=== PATIENT | male | born 1940 | race Caucasian/White ===

== ENCOUNTER 2017-03-01 11:36 | Emergency (ER) | payer MEDICARE, OTHER ==
[2017-03-01] MEDS ORDERED: Sodium Chloride 0.9% 10 ML Syringe FLUSH PRN (11:59)
--- NOTE | 2017-03-01 12:29 | EDM.PDOC ---
ED HPI GENERAL MEDICAL PROBLEM - General Chief Complaint: Respiratory Problem Stated Complaint: FEVER/CHILLS Time Seen by Provider: 03/01/17 11:45 Source of Information: Reports: Patient History Limitations: Reports: No Limitations - History of Present Illness INITIAL COMMENTS - FREE TEXT/NARRATIVE: The patient is a 76-year-old male with a chief complaint of chills. The patient has a history of chronic renal failure and is on dialysis. Yesterday he felt fine. This morning when he woke up he had chills. Today while he was waiting for dialysis he had the chills again. His temperature at that time was 99. He is just generally feeling poorly with fatigue and malaise and nausea. No vomiting. He also has a dry cough. He's had that for some time, not able to say exactly how long. States that there hasn't been much of a change in that. No chest pain. He denies shortness of breath but his feels like he's been breathing faster and has been having a harder time breathing. He denies abdominal pain. No dysuria. He does still make some urine. No skin complaint. No lower extremity pain or swelling. He was also noted to be hypoxic at dialysis so was sent to the emergency department for further evaluation. He recently moved Dr. Raman Albert after spending the winter in [facility]] where his care has been. He states that he was given an antibiotic sometime over the winter which caused renal failure resulting in need for dialysis since December. States that the first catheter that was placed in his right upper chest area had a wound or possible infection that hasn't fully healed. A second catheter was placed and the first catheter was removed but the wound from the first catheter has continued to be raw and nonhealed. No recent change in this wound. - Related Data Allergies Allergy/AdvReac Type Severity Reaction Status Date / Time antibiotic Allergy Renal Uncoded 03/01/17 12:17 Failure Home Meds: Home Meds Albuterol [Ventolin HFA] 2 puff INH Q6H PRN 03/01/17 [History] Allopurinol [Zyloprim] 100 mg PO BID 03/01/17 [History] Ascorbic Acid [Vitamin C] 1 tab PO BEDTIME 03/01/17 [History] Aspirin 325 mg PO DAILY 03/01/17 [History] Glimepiride [Amaryl] 2 mg PO WITHBREAKFAST 03/01/17 [History] Metoprolol Tartrate [Lopressor] 25 mg PO DAILY 03/01/17 [History] Omeprazole 20 mg PO DAILY 03/01/17 [History] Polyethylene Glycol [Polyox [id number]] 1 pack PO DAILY PRN 03/01/17 [History] Simvastatin [Zocor] 40 mg PO BEDTIME 03/01/17 [History] Past Medical History Cardiovascular History: Reports: Afib, Bypass, Heart Failure, Hypertension Respiratory History: Reports: Bronchitis, Recurrent Gastrointestinal History: Reports: Other (See Below) Other Gastrointestinal History: gout Genitourinary History: Reports: Dialysis, Renal Disease Endocrine/Metabolic History: Reports: Diabetes, Type II - Past Surgical History Cardiovascular Surgical History: Reports: Other (See Below) Other Cardiovascular Surgeries/Procedures: Triple bypass Musculoskeletal Surgical History: Reports: Other (See Below) Other Musculoskeletal Surgeries/Procedures:: back fracture Social & Family History - Tobacco Use Smoking Status *Q: Former Smoker Used Tobacco, but Quit: Yes Month Tobacco Last Used: 1980 - Caffeine Use Caffeine Use: Reports: None - Recreational Drug Use Recreational Drug Use: No ED ROS GENERAL - Review of Systems Review Of Systems: See Below Constitutional: Reports: Chills, Malaise, Weakness, Fatigue HEENT: Reports: No Symptoms Respiratory: Denies: Pleuritic Chest Pain, Cough Cardiovascular: Denies: Chest Pain Endocrine: Reports: Fatigue GI/Abdominal: Reports: Nausea. Denies: Abdominal Pain : Denies: Dysuria Musculoskeletal: Reports: No Symptoms. Denies: Leg Pain Skin: Reports: Wound. Denies: Rash Neurological: Reports: No Symptoms Psychiatric: Reports: No Symptoms Hematologic/Lymphatic: Reports: No Symptoms Immunologic: Reports: No Symptoms ED EXAM, GENERAL - Physical Exam Exam: See Below Exam Limited By: No Limitations General Appearance: Alert, Mild Distress, Other (Mildly tachypneic, ill appearing) Eye Exam: Bilateral Eye: Normal Inspection Ears: Normal External Exam Nose: Normal Inspection, Normal Mucosa, No Blood Throat/Mouth: Normal Inspection, Normal Voice, No Airway Compromise Head: Atraumatic, Normocephalic Neck: Normal Inspection, Supple, Non-Tender, Full Range of Motion Respiratory/Chest: Other (tachypnea, few crackles at the bases, no wheeze) Cardiovascular: Normal Peripheral Pulses, Regular Rate, Rhythm, No Edema, No Murmur GI/Abdominal: Soft, Non-Tender, No Distention. No: Rebound Back Exam: Normal Inspection Extremities: Normal Inspection. No: Pedal Edema, Leg Pain, Redness Neurological: Alert, Oriented, Normal Cognition, No Motor/Sensory Deficits Psychiatric: Normal Affect, Normal Mood Skin Exam: Warm, Dry, Intact, Normal Color, No Rash Course - Vital Signs Last Recorded V/S: Last Vital Signs Temp 37.1 C 03/01/17 11:43 Pulse 87 03/01/17 11:43 Resp 30 H 03/01/17 11:43 BP 188/73 H 03/01/17 11:43 Pulse Ox 86 L 03/01/17 11:43 - Orders/Labs/Meds Orders: Active Orders 24 hr Category Date Time Status EKG 12 Lead [EKG Documentation Completion] [RC] STAT Care 03/01/17 12:23 Active Peripheral IV Care [RC] . DIRECTED Care 03/01/17 12:00 Active Chest 1V Frontal [CR] Stat Exams 03/01/17 11:59 Taken CULTURE BLOOD [BC] Stat Lab 03/01/17 12:25 Received CULTURE BLOOD [BC] Stat Lab 03/01/17 12:40 Received CULTURE BLOOD [BC] Stat Lab 03/01/17 13:03 Received Sodium Chloride 0.9% [Saline Flush] Med 03/01/17 11:59 Active 10 ml FLUSH ASDIRECTED PRN Blood Culture x2 Reflex Set [OM.PC] Stat Oth 03/01/17 11:59 Ordered Blood Culture x2 Reflex Set [OM.PC] Stat Oth 03/01/17 12:23 Ordered Peripheral IV Insertion Adult [OM.PC] Routine Oth 03/01/17 11:59 Ordered Medication Orders Sodium Chloride (Saline Flush) 10 ml FLUSH ASDIRECTED PRN PRN Reason: Keep Vein Open Last Admin: 03/01/17 13:18 Dose: 10 ml Labs: Laboratory Tests 03/01/17 03/01/17 03/01/17 Range/Units 12:25 12:25 12:25 WBC 17.67 H (4.23-9.07) K/mm3 RBC 3.65 L (4.63-6.08) M/mm3 Hgb 10.9 L (13.7-17.5) gm/L Hct 34.9 L (40.1-51.0) % MCV 95.6 H (79.0-92.2) fl MCH 29.9 (25.7-32.2) pg MCHC 31.2 L (32.2-35.5) g/dl RDW Std Deviation 55.2 H (35.1-43.9) fL Plt Count 151 L (163-337) K/mm3 MPV 11.4 (9.4-12.3) fl Neut % (Auto) 91.0 H (34.0-67.9) % Lymph % (Auto) 5.0 L (21.8-53.1) % Meade % (Auto) 3.2 L (5.3-12.2) % Eos % (Auto) 0.2 L (0.8-7.0) Baso % (Auto) 0.1 (0.1-1.2) % Neut # (Auto) 16.08 H (1.78-5.38) K/mm3 Lymph # (Auto) 0.89 L (1.32-3.57) K/mm3 Meade # (Auto) 0.56 (0.30-0.82) K/mm3 Eos # (Auto) 0.03 L (0.04-0.54) K/mm3 Baso # (Auto) 0.02 (0.01-0.08) K/mm3 Manual Slide Review Abnormal smear Sodium 135 L (136-145) mEq/L Potassium 4.6 (3.5-5.1) mEq/L Chloride 99 (98-107) mEq/L Carbon Dioxide 27 (21-32) mEq/L Anion Gap 13.6 (5-15) BUN 61 H (7-18) mg/dL Creatinine 6.2 H (0.7-1.3) mg/dL Est Cr Clr Drug Dosing 7.71 mL/min Estimated GFR (MDRD) 9 (>60) mL/min BUN/Creatinine Ratio 9.8 L (14-18) Glucose 177 H (83-115) mg/dL Lactic Acid 2.5 H (0.4-2.0) mmol/L Calcium 8.8 (8.5-10.1) mg/dL Total Bilirubin 0.4 (0.2-1.0) mg/dL AST 10 L (15-37) U/L ALT 14 L (16-63) U/L Alkaline Phosphatase 61 (46-116) U/L Troponin I (0.00-0.056) ng/mL Total Protein 7.4 (6.4-8.2) g/dl Albumin 3.1 L (3.4-5.0) g/dl Globulin 4.3 gm/dL Albumin/Globulin Ratio 0.7 L (1-2) Urine Color (Yellow) Urine Appearance (Clear) Urine pH (5.0-8.0) Ur Specific Alden (1.005-1.030) Urine Protein (Negative) Urine Glucose (UA) (Negative) Urine Ketones (Negative) Urine Occult Blood (Negative) Urine Nitrite (Negative) Urine Bilirubin (Negative) Urine Urobilinogen (0.2-1.0) Ur Leukocyte Esterase (Negative) Urine RBC (0-5) /hpf Urine WBC (0-5) /hpf Ur Epithelial Cells (0-5) /hpf Urine Bacteria (FEW) /hpf Urine Mucus (FEW) /hpf 03/01/17 03/01/17 Range/Units 12:25 13:15 WBC (4.23-9.07) K/mm3 RBC (4.63-6.08) M/mm3 Hgb (13.7-17.5) gm/L Hct (40.1-51.0) % MCV (79.0-92.2) fl MCH (25.7-32.2) pg MCHC (32.2-35.5) g/dl RDW Std Deviation (35.1-43.9) fL Plt Count (163-337) K/mm3 MPV (9.4-12.3) fl Neut % (Auto) (34.0-67.9) % Lymph % (Auto) (21.8-53.1) % Meade % (Auto) (5.3-12.2) % Eos % (Auto) (0.8-7.0) Baso % (Auto) (0.1-1.2) % Neut # (Auto) (1.78-5.38) K/mm3 Lymph # (Auto) (1.32-3.57) K/mm3 Meade # (Auto) (0.30-0.82) K/mm3 Eos # (Auto) (0.04-0.54) K/mm3 Baso # (Auto) (0.01-0.08) K/mm3 Manual Slide Review Sodium (136-145) mEq/L Potassium (3.5-5.1) mEq/L Chloride (98-107) mEq/L Carbon Dioxide (21-32) mEq/L Anion Gap (5-15) BUN (7-18) mg/dL Creatinine (0.7-1.3) mg/dL Est Cr Clr Drug Dosing mL/min Estimated GFR (MDRD) (>60) mL/min BUN/Creatinine Ratio (14-18) Glucose (83-115) mg/dL Lactic Acid (0.4-2.0) mmol/L Calcium (8.5-10.1) mg/dL Total Bilirubin (0.2-1.0) mg/dL AST (15-37) U/L ALT (16-63) U/L Alkaline Phosphatase (46-116) U/L Troponin I 0.099 H* (0.00-0.056) ng/mL Total Protein (6.4-8.2) g/dl Albumin (3.4-5.0) g/dl Globulin gm/dL Albumin/Globulin Ratio (1-2) Urine Color Yellow (Yellow) Urine Appearance Slt cloudy H (Clear) Urine pH 5.5 (5.0-8.0) Ur Specific Alden 1.020 (1.005-1.030) Urine Protein 3+ H (Negative) Urine Glucose (UA) Negative (Negative) Urine Ketones Negative (Negative) Urine Occult Blood Negative (Negative) Urine Nitrite Negative (Negative) Urine Bilirubin Negative (Negative) Urine Urobilinogen 0.2 (0.2-1.0) Ur Leukocyte Esterase Negative (Negative) Urine RBC Not seen (0-5) /hpf Urine WBC 0-5 (0-5) /hpf Ur Epithelial Cells 0-5 (0-5) /hpf Urine Bacteria Few (FEW) /hpf Urine Mucus Not seen (FEW) /hpf Meds: Medications Generic Name Dose Route Start Last Admin Trade Name Freq PRN Reason Stop Dose Admin Sodium Chloride 10 ml 03/01/17 11:59 03/01/17 13:18 Saline Flush FLUSH 10 ml ASDIRECTED PRN Administration Keep Vein Open Discontinued Medications Generic Name Dose Route Start Last Admin Trade Name Freq PRN Reason Stop Dose Admin Heparin Sodium (Porcine) 500 units 03/01/17 12:46 03/01/17 13:20 Heparin Lock Flush 100 Units/Ml FLUSH 03/01/17 12:47 Not Given ASDIRECTED ONE Piperacillin Sod/Tazobactam 100 mls @ 200 mls/hr 03/01/17 12:33 03/01/17 13: 18 Sod 4.5 gm/ Sodium Chloride IV 03/01/17 13:02 200 mls/hr ONETIME ONE Administration Vancomycin HCl 1.5 gm/ Sodium 250 mls @ 250 mls/hr 03/01/17 12:33 Chloride IV 03/01/17 13:32 ONETIME ONE Vancomycin HCl 1 gm/ 500 mls @ 500 mls/hr 03/01/17 13:18 03/01/17 13:50 Vancomycin HCl 500 mg/ Sodium IV 03/01/17 13:32 500 mls/hr Chloride ONETIME ONE Administration - Re-Assessments/Exams Free Text/Narrative Re-Assessment/Exam: 03/01/17 13:23 Chest x-ray shows mild haziness at the bilateral bases, difficult to exclude early pneumonia. Probable left lower lobe effusion. Cardiomegaly. No prior available for comparison. Labs show elevated white blood cell count with left shift. Patient has mild troponin leak with troponin is 0.09. He has no chest pain whatsoever. EKG shows normal sinus rhythm, nonspecific T-wave flattening/ abnormality, no ST elevation NE. Suspect the patient's sepsis is likely due to early pneumonia given his new cough and hypoxia as well. This would be a healthcare associated pneumonia given that he is a dialysis patient. We don't have the ability to admit dialysis patients here so the patient will need to be transferred. His preference is to go to [facility] as his prior care in [place] has been there. We've requested records from [facility]]. [facility] call called at 1:20 PM. 03/01/17 13:[address] Chilel, hospitalist at [facility], who accepts the patient for transfer. Departure - Departure Time of Disposition: 13:30 Disposition: DC/Tfer to [facility] Condition: Fair Clinical Impression: Hypoxemia, Troponin I above reference range Pneumonia Qualifiers: Pneumonia type: due to unspecified organism Laterality: bilateral Lung location : lower lobe of lung Qualified Code(s): J18.9 - Pneumonia, unspecified organism Sepsis Qualifiers: Sepsis type: sepsis due to unspecified organism Qualified Code(s): A41.9 - Sepsis, unspecified organism Chronic renal failure Qualifiers: Chronic kidney disease stage: stage 4 (severe) Qualified Code(s): N18.4 - Chronic kidney disease, stage 4 (severe) - Discharge Information Referrals: Erik Grimes MD [Primary Care Provider] - Forms: ED Department Discharge - My Orders Last 24 Hours: My Active Orders 03/01/17 11:59 Chest 1V Frontal [CR] Stat Sodium Chloride 0.9% [Saline Flush] 10 ml FLUSH ASDIRECTED PRN Blood Culture x2 Reflex Set [OM.PC] Stat Peripheral IV Insertion Adult [OM.PC] Routine 03/01/17 12:00 Peripheral IV Care [RC] . DIRECTED 03/01/17 12:23 EKG 12 Lead [EKG Documentation Completion] [RC] STAT Blood Culture x2 Reflex Set [OM.PC] Stat 03/01/17 12:25 CULTURE BLOOD [BC] Stat 03/01/17 12:40 CULTURE BLOOD [BC] Stat 03/01/17 13:03 CULTURE BLOOD [BC] Stat - Assessment/Plan Last 24 Hours: My Active Orders 03/01/17 11:59 Chest 1V Frontal [CR] Stat Sodium Chloride 0.9% [Saline Flush] 10 ml FLUSH ASDIRECTED PRN Blood Culture x2 Reflex Set [OM.PC] Stat Peripheral IV Insertion Adult [OM.PC] Routine 03/01/17 12:00 Peripheral IV Care [RC] . DIRECTED 03/01/17 12:23 EKG 12 Lead [EKG Documentation Completion] [RC] STAT Blood Culture x2 Reflex Set [OM.PC] Stat 03/01/17 12:25 CULTURE BLOOD [BC] Stat 03/01/17 12:40 CULTURE BLOOD [BC] Stat 03/01/17 13:03 CULTURE BLOOD [BC] Stat
[2017-03-01] MEDS ORDERED: Piperacillin/Tazobactam 4.5 GM in Sodium Chloride 0.9% 100 ML IV ONE (12:33)
[2017-03-01] MEDS ORDERED: Vancomycin 1 GM, Vancomycin 500 MG in Sodium Chloride 0.9% 500 ML IV ONE (13:18)
[2017-03-01 14:51] VITALS: BP 138/61
--- NOTE | 2017-03-01 15:02 | CR ---
Chest: Portable view of the chest was obtained. Comparison: No previous study. Mild linear densities are seen within the left mid and lower lung most likely representing atelectasis. Right lung is clear. Right-sided dialysis catheter is seen. Previous sternotomy is noted presumably for CABG. Bony structures are grossly intact. Impression: 1. Areas of increased density within left mid and lower chest most likely representing atelectasis. 2. Other incidental findings. Diagnostic code #3
== END 2017-03-01 14:33 | disposition critical access hospital (66) ==
LOC: JD.ED 11:36
DX: A41.9 Sepsis, unspecified organism (principal); I13.0 Hypertensive heart and chronic kidney disease with heart failure and stage 1 through stage 4 chronic kidney disease, or unspecified chronic kidney disease; J18.9 Pneumonia, unspecified organism; I50.9 Heart failure, unspecified; N18.4 Chronic kidney disease, stage 4 (severe); I48.91 Unspecified atrial fibrillation; E11.9 Type 2 diabetes mellitus without complications; R09.02 Hypoxemia; Z88.1 Allergy status to other antibiotic agents; Z79.82 Long term (current) use of aspirin; Z79.899 Other long term (current) drug therapy; Z95.1 Presence of aortocoronary bypass graft; Z87.891 Personal history of nicotine dependence
CPT/HCPCS: 36415; 71010; 80053; 81001; 83605; 84484; 85025; 87040; 93005; 96365; 96367; 99285; J2543; J3370; J7030; J7040; J7050; 87077; 87186